=== PATIENT | male | born 1950 | race Caucasian/White ===

== ENCOUNTER 2021-07-13 11:12 | Outpatient (CLI) | payer MEDICARE, BC ==
[2021-07-13 23:10] LABS: SARS-CoV-2 PCR by NAA Not Detected (NotDetected)
== END 2021-07-13 11:13 | disposition home or self-care (01) ==
LOC: LABBT 11:12
PROVIDERS: ATTEND Ophthalmology Retina Specialist
DX: Z01.812 Encounter for preprocedural laboratory examination (principal); H54.7 Unspecified visual loss; Z20.822 Contact with and (suspected) exposure to COVID-19
CPT/HCPCS: U0003; U0005

== ENCOUNTER 2021-07-18 08:33 | Day surgery (SDC) | payer MEDICARE, BC ==
[2021-07-17 09:55] VITALS: BMI 29.0
[~2021-07-18 08:33] MED LIST: EPINEPHrine 0.3 MG in Ophthalmic Irrigation Solution 500 ML IRR SCH; Fentanyl 100 MCG/2 ML VIAL ONE; Midazolam HCl 2 mg/2 ml Vial ONE; PROPOFOL 20 ML ONE
[2021-07-18] MEDS ORDERED: Cyclopentolate 1% Opth Drop 2 ML BOT ONE (08:47)
[2021-07-18] MEDS ORDERED: Phenylephrine 2.5% Ophth Soln 5 ML BOT ONE (08:48)
[2021-07-18] MEDS ORDERED: Maxitrol 0.1% Opth Oint 3.5 GM TUBE ONE (11:15)
[2021-07-18] MEDS ORDERED: Triamcinolone 40 MG/ML VIAL ONE (11:15)
[2021-07-18] MEDS ORDERED: Lidocaine 1% PF 5 ML VIAL ONE (11:15)
[2021-07-18] MEDS ORDERED: CEFAZOLIN 1 GM VIAL ONE (11:15)
[2021-07-18] MEDS ORDERED: Bupivacaine PF 0.75% SDV 10 ML ONE (11:15)
[2021-07-18] MEDS ORDERED: Lidocaine 4% PF 5 ML AMP ONE (11:15)
== END 2021-07-18 12:21 | disposition home or self-care (01) ==
LOC: SDC 08:33
PROVIDERS: ATTEND Ophthalmology Retina Specialist
PROC: 08T43ZZ Resection of Right Vitreous, Percutaneous Approach (ICD-10-PCS; principal; 2021-07-18)
PROC: 08QE3ZZ Repair Right Retina, Percutaneous Approach (ICD-10-PCS; 2021-07-18)
DX: H43.11 Vitreous hemorrhage, right eye (principal); I10 Essential (primary) hypertension; E78.5 Hyperlipidemia, unspecified; I25.10 Atherosclerotic heart disease of native coronary artery without angina pectoris; N40.0 Benign prostatic hyperplasia without lower urinary tract symptoms; Z88.5 Allergy status to narcotic agent; Z79.82 Long term (current) use of aspirin; Z79.84 Long term (current) use of oral hypoglycemic drugs; Z79.899 Other long term (current) drug therapy; Z95.5 Presence of coronary angioplasty implant and graft; Z98.890 Other specified postprocedural states; Z87.01 Personal history of pneumonia (recurrent); Z96.1 Presence of intraocular lens
CPT/HCPCS: J0171; J0690; J2250; J2704; J3010; J3301; J3490

== ENCOUNTER 2021-08-31 16:50 | Outpatient (CLI) | payer MEDICARE, BC ==
[2021-09-01 08:00] LABS: SARS-CoV-2 PCR by NAA Not Detected (NotDetected)
== END 2021-08-31 16:51 | disposition home or self-care (01) ==
LOC: LABBT 16:50
PROVIDERS: ATTEND Family Medicine
DX: Z01.812 Encounter for preprocedural laboratory examination (principal); Z20.822 Contact with and (suspected) exposure to COVID-19
CPT/HCPCS: U0003; U0005

== ENCOUNTER 2021-09-05 10:11 | Day surgery (SDC) | payer MEDICARE, BC ==
[2021-09-01 15:14] VITALS: BMI 29.8
[~2021-09-05 10:11] MED LIST changes: +Famotidine/PF 20 mg/2ml Vial ONE; -PROPOFOL 20 ML ONE
[2021-09-05] MEDS ORDERED: Phenylephrine 2.5% Ophth Soln 5 ML BOT ONE (10:54)
[2021-09-05] MEDS ORDERED: Cyclopentolate 1% Opth Drop 2 ML BOT ONE (10:54)
[2021-09-05] MEDS ORDERED: Metoclopramide HCl 10 MG/2 ML VIAL ONE (12:13)
[2021-09-05] MEDS ORDERED: Lidocaine 1% PF 5 ML VIAL ONE ×2 (12:13)
[2021-09-05] MEDS ORDERED: Triamcinolone 40 MG/ML VIAL ONE ×2 (12:13→12:30)
[2021-09-05] MEDS ORDERED: Lidocaine 4% PF 5 ML AMP ONE (12:13)
[2021-09-05] MEDS ORDERED: Maxitrol 0.1% Opth Oint 3.5 GM TUBE ONE (12:13)
[2021-09-05] MEDS ORDERED: CEFAZOLIN 1 GM VIAL ONE (12:13)
[2021-09-05] MEDS ORDERED: Ondansetron PF 4 MG/2 ML Vial ONE (12:13)
[2021-09-05] MEDS ORDERED: Bupivacaine PF 0.75% SDV 10 ML ONE (12:13)
[2021-09-05] MEDS ORDERED: PROPOFOL 200 MG/20 ML VIAL ONE (12:13)
== END 2021-09-05 16:05 | disposition home or self-care (01) ==
LOC: SDC 10:11
PROVIDERS: ATTEND Ophthalmology Retina Specialist
PROC: 08T43ZZ Resection of Right Vitreous, Percutaneous Approach (ICD-10-PCS; principal; 2021-09-05)
PROC: 08PJ3JZ Removal of Synthetic Substitute from Right Lens, Percutaneous Approach (ICD-10-PCS; 2021-09-05)
PROC: 08RJ3JZ Replacement of Right Lens with Synthetic Substitute, Percutaneous Approach (ICD-10-PCS; 2021-09-05)
DX: T85.22XA Displacement of intraocular lens, initial encounter (principal); Z79.82 Long term (current) use of aspirin; Z79.84 Long term (current) use of oral hypoglycemic drugs; Z79.899 Other long term (current) drug therapy; Z88.5 Allergy status to narcotic agent; Y77.2 Prosthetic and other implants, materials and accessory ophthalmic devices associated with adverse incidents
CPT/HCPCS: J0171; J0690; J2250; J2405; J2704; J2765; J3010; J3301; J3490; S0028